=== PATIENT | male | born 1980 | race Hispanic/Latino ===

== ENCOUNTER 2017-10-15 12:00 | Emergency (ER) | payer SELFPAY ==
[2017-10-15] MEDS ORDERED: Adacel (T-DAP) 0.5 ML VIAL ONE (13:41)
--- NOTE | 2017-10-15 13:45 | RAD ---
RADIOGRAPH LEFT HAND THREE VIEWS: HISTORY: A 37-year-old male status post laceration injury to the left hand. FINDINGS: There is no radiopaque foreign body. No fracture, dislocation, or any other major osseous abnormalit y. 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 Minimal degenerative joint disease at first [facility]. IMPRESSION: No evidence of acute traumatic injury. POS: [facility]
[2017-10-15] MEDS ORDERED: Bacitracin Zinc 1 Packet ONE (13:46)
== END 2017-10-15 13:51 | disposition home or self-care (01) ==
LOC: SCSER 12:00
DX: S61.412A Laceration without foreign body of left hand, initial encounter (principal); I10 Essential (primary) hypertension; F17.210 Nicotine dependence, cigarettes, uncomplicated; F41.9 Anxiety disorder, unspecified; W25.XXXA Contact with sharp glass, initial encounter
CPT/HCPCS: 12002; 90471; 90715; 99406

== ENCOUNTER 2017-12-27 09:43 | Emergency (ER) | payer SELFPAY ==
[2017-12-27] MEDS ORDERED: Acetaminophen/Codeine 30-300mg Tablet ONE (11:48)
[2017-12-27] MEDS ORDERED: Cyclobenzaprine 10 MG TAB ONE (11:49)
[2017-12-27] MEDS ORDERED: Ketorolac Tromethamine 60 MG/2 ML VIAL ONE (11:49)
== END 2017-12-27 12:35 | disposition home or self-care (01) ==
LOC: ERS 09:43
DX: M54.42 Lumbago with sciatica, left side (principal); I10 Essential (primary) hypertension; F41.9 Anxiety disorder, unspecified
CPT/HCPCS: 96372; J1885